=== PATIENT | female | born 1970 | race Caucasian/White ===

== ENCOUNTER 2022-04-02 10:14 | Inpatient (IN) | payer BC ==
[~2022-04-02] VITALS: Ht 162.6 cm; Wt 63.0 kg
[2022-04-02 10:20] VITALS: BP_SYST 94
--- NOTE | 2022-04-02 10:25 | NUR ---
Placed in room 7 . Placed on neighborhood coordinator, blood pressure machine and pulse oximeter. To gown for exam. Side rails up.
--- NOTE | 2022-04-02 10:26 | NUR ---
ER at bedside examining patient.
--- NOTE | 2022-04-02 10:27 | NUR ---
PT CAME IN FROM HOME, PT REPORTS SHE HAD CHEMO 1.5 WEEKS AGO FOR FIRST TIME, HAS DEVELOPED SORES ON FACE, MOUTH, TONGUE AND THROAT. UNABLE TO TOLERATE PO X 3 DAYS DUE TO PAIN RECENT DX OF BREAST AND LIVER CA. PT IS UNABLE TO TALK DUE TO PAIN. PT IS AMBULATORY, AAOX4, VSS
[2022-04-02] MEDS ORDERED: NACL 0.9% 1,000 ML IV ONE (10:45)
--- NOTE | 2022-04-02 10:56 | NUR ---
LAB AT THE BEDSIDE FOR BLOOD DRAW
[2022-04-02] MEDS ORDERED: MORPHINE 2 MG/ML INJ. SYRINGE IVP ONE (11:45)
[2022-04-02 11:49] LABS: HEMOGLOBIN 12.8 g/dL (12.0-16.0); MEAN CORPUSCULAR HEMOGLOBIN 28 pg (27-31); MEAN CORPUSCULAR HGB CONC 34 % (32-36); MEAN CORPUSCULAR VOLUME 84 fL (79.0-98.0); PLATELET COUNT (AUTO) 82 K/uL (130-430); RED BLOOD CELL COUNT(AUTO) 4.54 MIL/uL (4.2-6.2); RED CELL DISTRIBUTION WIDTH 16.1 % (9.0-15.0)
[2022-04-02 11:55] LABS: INR 1.2 (0.8-1.2)
[2022-04-02 12:00] LABS: WHITE BLOOD COUNT (AUTO) 26.1 K/uL (4.8-10.8)
[2022-04-02 12:08] LABS: ANION GAP 13 (5-15); ASPARTATE AMINOTRANSFERASE 73 U/L (10-37); CALCIUM 7.8 mg/dL (8.4-11.0); CHLORIDE 100 mmol/L (98-107); CREATININE 1.66 mg/dL (0.55-1.30); GFR AFRICAN AMERICAN 42 mL/min (>90); GLUCOSE 101 mg/dL (70-99); TOTAL BILIRUBIN 1.7 mg/dL (0.0-1.0); UREA NITROGEN, BLOOD 51 mg/dL (8-21)
[2022-04-02 12:09] LABS: ALANINE AMINOTRANSFERASE 53 U/L (12-78)
[2022-04-02 12:22] LABS: ACETONE, SERUM NEGATIVE (NEGATIVE)
[2022-04-02] MEDS ORDERED: cefTRIAXone 1 GM IVPB PREMIX 50 ML IV ONE (13:00)
[2022-04-02 13:12] LABS: ATYPICAL LYMPHOCYTES % 0 % (0-0); BAND % (MANUAL) 17 % (0-6); BASOPHILS % (MANUAL) 0 % (0-2); EOSINOPHILS % (MANUAL) 0 % (0-7); LYMPHOCYTES % (MANUAL) 14 % (20-46); METAMYELOCYTES % 2 % (0-0); MONOCYTES % (MANUAL) 9 % (0-11); MYELOCYTES % 2 % (0-0)
[2022-04-02] MEDS: D5/0.45 NS 1,000 ML IV SCH ×2 (13:55→23:09)
--- NOTE | 2022-04-02 14:43 | NUR ---
Admit bed requested Patient will be admitted to care of . Admitted to Telemetry unit. Diagnosis Sepsis,Renal Failure Inpatient (Yes or No) yes Observation (Yes or No) no Orientation concerns or request close to nursing station (Yes or No) no Covid Status pending On vent or bipap no Isolation requirements no Needs a sitter no From Home (Yes or if No enter name of facility) yes Requires Dialysis (Yes or No) no Med Rec Completed (Yes of No) pending
[2022-04-02] MEDS ORDERED: NALOXONE HCL 0.4 MG/ML AMP (NARCAN) IVP PRN ×3 (15:00→16:45)
[2022-04-02] MEDS ORDERED: HYDROcodone/ACETAMIN 5-325 MG TAB (NORCO/ VICODIN) PO PRN (15:00)
[2022-04-02] MEDS ORDERED: LORazepam 2 MG/ML VIAL IVP PRN (15:00)
[2022-04-02] MEDS ORDERED: ACETAMINOPHEN 325 MG TABLET PO PRN ×2 (15:00→15:30)
[2022-04-02] MEDS ORDERED: HYDROcodone/ACETAMIN 10-325 MG TAB PO PRN (15:00)
--- NOTE | 2022-04-02 16:26 | NUR ---
Patient will be admitted to care of DR. CHAPMAN. Admitted to MST unit. Will go to room 100A. Belongings list completed. Complete and up to date summary report printed. SBAR given at bedside TO JEWELS BLAKE with opportunity for questions.
--- NOTE | 2022-04-02 16:38 | NUR ---
CONSULTATION: REASON FOR CONSULT: SEPSIS CONSULTING PHYSICIAN: Surya CRAVEN ORDERED BY: Keisha CHAPMAN SPOKE WITH [facility] [phone]
--- NOTE | 2022-04-02 16:42 | NUR ---
CONSULTATION: REASON FOR CONSULT: RENAL FAILURE CONSULTING PHYSICIAN: Keisha SHABAZZ ORDERED BY: Keisha CHAPMAN SPOKE WITH [facility] [phone] DR MARINA IS ONCALL FOR DR SHABAZZ
[2022-04-02] MEDS ORDERED: ONDANSETRON HCL 4 MG/2 ML VIAL IVP PRN (16:45)
[2022-04-02] MEDS ORDERED: MORPHINE 2 MG/ML INJ. SYRINGE IVP PRN (16:45)
--- NOTE | 2022-04-02 16:45 | NUR ---
Patient arrived to hospital unit room 100A via gurney. Patient is alert and oriented x4. Respiration even and unlabored. No shortness of breath and respiration even and unlabored. Patient c/o mouth and throat soreness and stated she was unable to swallow. Patient's mom and at bedside. 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 Patient's asked if the rocephin will help clear up the soreness of mouth and throat. Explained that the DrAshlyn may have more information regarding his question. DAVE Carvalho made aware that patient had arrived. Dr. Honeycutt contacted for further orders. Will continue to monitor. Call light within reach.
--- NOTE | 2022-04-02 16:47 | NUR ---
CONSULTATION: REASON FOR CONSULT: HX MESTASTIC CANCER CONSULTING PHYSICIAN: LÓPEZ ORDERED BY: ADELA SPOKE WITH [facility] [phone]
[2022-04-02] MEDS: NYSTATIN 500,000 UNITS/5 ML UDC PO SCH ×2 (16:50→23:08)
[2022-04-02] MEDS: ONDANSETRON HCL 4 MG/2 ML VIAL IVP PRN ×2 (16:51→23:08)
[2022-04-02 17:14] VITALS: BP_SYST 143
[2022-04-02 17:41] LABS: BILIRUBIN,URINE NEGATIVE (NEGATIVE); BLOOD, URINE 2+ (NEGATIVE); COLOR,URINE YELLOW (YELLOW); GLUCOSE,URINE NEGATIVE (NEGATIVE); KETONES,URINE NEGATIVE (NEGATIVE); LEUKOCYTE ESTERASE ,URINE 1+ (NEGATIVE); NITRITE, URINE NEGATIVE (NEGATIVE); PH,URINE 5.5 (5.0-8.0); PROTEIN URINE TRACE (NEGATIVE); UROBILINOGEN,URINE 0.2 (0.2-1.0)
[2022-04-02 17:53] LABS: CLARITY/URINE HAZY (CLEAR)
[2022-04-02 17:55] LABS: BACTERIA,URINE FEW /HPF (None Seen); OTHER CASTS, URINE CELLULAR CAST /LPF (None Seen); RBC,URINE NONE SEEN /HPF (0-3)
[2022-04-02 17:56] LABS: MUCUS,URINE None Seen /LPF (None Seen)
--- NOTE | 2022-04-02 18:31 | NUR ---
Spoke with Dr. Honeycutt regarding orders. New orders noted and carriedo ut.
[2022-04-02 18:33] VITALS: BP_SYST 134
--- NOTE | 2022-04-02 18:41 | NUR ---
Report given to cage shift manager RN for continuity of care. Patient stable.
--- NOTE | 2022-04-02 19:20 | NUR ---
Opening note Received patient awake, AOx4. Resting in bed, no distress and non labored breathing on room air. She has a dry weak cough. IVF is infusing via portacath on Rt chest. She reports generalized weakness, pain/discomfort. Bed is locked in lowest position, side rails up, call light w/in reach and updated board.
[2022-04-02 20:00] VITALS: BP_SYST 113
[2022-04-02] MEDS: MORPHINE 4 MG INJ. 4 MG/ML VIAL IVP PRN (23:07)
--- NOTE | 2022-04-02 23:07 | NUR ---
c/o severe pain; Morphine Patient reports severe pain 12/12; generalized (to bones, arms, legs, mouth, all her body. Administered Morphine 4mg for severe pain as ordered. Unable to swallow tablets since she also has oral pain when swallows. Addendum: 04/02/22 at 2357 by Kaylen Lee RN Reviewed Morphine side effects and she verbalized understanding., Bed alarm turned on.
--- NOTE | 2022-04-02 23:09 | NUR ---
IVF, Nystatin Hung new bag of IVF, infusing well. Scheduled med, Nystatin given. She reports it is painful when swish and swallows; she requested a cup of ice water; and it was provided.
[2022-04-03 00:31] VITALS: BP_SYST 107
--- NOTE | 2022-04-03 02:30 | NUR ---
Rounds / Bed franz Patient reports leg weakness and would rather use bed franz; instead of trying to stand for BSC. She voided and was assisted with reposition/turn for comfort. Call light, bedside tray and water is w/in reach. She has no further needs.
--- NOTE | 2022-04-03 06:40 | NUR ---
Bed franz Provided bed franz (voided) and assist with reposition for comfort.
[2022-04-03] MEDS: ONDANSETRON HCL 4 MG/2 ML VIAL IVP PRN ×2 (06:59→22:23)
[2022-04-03] MEDS: NYSTATIN 500,000 UNITS/5 ML UDC PO SCH ×3 (06:59→18:12)
[2022-04-03] MEDS: MORPHINE 4 MG INJ. 4 MG/ML VIAL IVP PRN ×2 (07:00→22:23)
--- NOTE | 2022-04-03 07:05 | NUR ---
closing note Patient resting in bed in comfortable position. Morphine administered for severe pain and also Zofran was given ( B/P was 124/78, HR 118). She is drinking ice cold water and Nystatin given. Presently stable, will endorse care.
--- NOTE | 2022-04-03 07:35 | NUR ---
RECEIVED PT FROM JEWELS RASCON. PT IS AAOX4. TELEMONITOR READING SINUS TACH HR IN 110S. RESP E/U. ON R/A. NO COUGH OR SOB NOTED. ABDOMEN SOFT, NONTENDER, NONDISTENDED. BOWEL SOUNDS ACTIVE, POOR APPETITE NOTED. PT HAS ORAL LESIONS AND DIFFUSE RED RASH TO SKIN. DISTAL PULSES NORMAL, NO PERIPHERAL EDEMA. SKIN WARM, DRY, CAP REFILL < 3 SECS. PT HAS RIGHT UPPER CHEST PORTACATH, PATENT WITH D5 1/2 NS RUNNING. SITE WNL, DRESSING CDI. CALL LIGHT WITHIN REACH. BED IN LOWEST POSITION.
[2022-04-03] MEDS: D5/0.45 NS 1,000 ML IV SCH ×2 (07:49→18:13)
[2022-04-03 08:26] VITALS: BP_SYST 125
--- NOTE | 2022-04-03 08:45 | NUR ---
SCHEDULED MEDS GIVEN ORDERED. PT GIVEN ICE CHIPS TO RELIEVE SORE MOUTH. REPOSITIONED FOR COMFORT. STATES GENERALIZED PAIN 2/10 AND TOLERABLE AT THIS TIME. SIDERAILS UP, CALL LIGHT WITHIN REACH.
--- NOTE | 2022-04-03 10:45 | NUR ---
DR. CHAPMAN AT BEDSIDE TO DISCUSS POC.
[2022-04-03] MEDS ORDERED: LORazepam 2 MG/ML VIAL IVP PRN (11:00)
--- NOTE | 2022-04-03 11:18 | NUR ---
CONSULT GI TRANSAMINITIS DR CHONG [facility] [phone] S/W BRITTA SANCHEZ
--- NOTE | 2022-04-03 11:46 | NUR ---
SPOKE TO DR. CRAVEN BY PHONE, RECEIVED ORDER FOR ROCEPHIN ONE GRAM IV Q DAILY. ORDER CARRIED OUT.
[2022-04-03 12:20] VITALS: BP_SYST 118
[2022-04-03] MEDS ORDERED: cefTRIAXone 1 GM in D5W 50 ML IV SCH (13:00)
[2022-04-03] MEDS ORDERED: cefTRIAXone 1 GM IVPB PREMIX 50 ML IV SCH (13:00)
--- NOTE | 2022-04-03 13:10 | NUR ---
PT ASSISTED TO BEDSIDE COMMODE TO URINATE, THEN ASSISTED BACK TO BED. PT TOLERATED ACTIVITY WELL AND SHOWS INCRESING STRENGTH. SCHEDULED MEDS GIVEN AND TOLERATED WELL.
[2022-04-03 14:32] LABS: HEMATOCRIT 32.1 % (36-48); HEMOGLOBIN 10.9 g/dL (12.0-16.0); MEAN CORPUSCULAR HEMOGLOBIN 28 pg (27-31); MEAN CORPUSCULAR HGB CONC 34 % (32-36); MEAN CORPUSCULAR VOLUME 84 fL (79.0-98.0); RED BLOOD CELL COUNT(AUTO) 3.84 MIL/uL (4.2-6.2); RED CELL DISTRIBUTION WIDTH 16.5 % (9.0-15.0)
[2022-04-03 14:42] LABS: WHITE BLOOD COUNT (AUTO) 26.4 K/uL (4.8-10.8)
[2022-04-03 15:02] LABS: PLATELET COUNT (AUTO) 66 K/uL (130-430)
[2022-04-03 15:03] LABS: BAND % (MANUAL) 10 % (0-6); BASOPHILS % (MANUAL) 0 % (0-2); EOSINOPHILS % (MANUAL) 0 % (0-7); LYMPHOCYTES % (MANUAL) 9 % (20-46); MONOCYTES % (MANUAL) 2 % (0-11); MYELOCYTES % 1 % (0-0)
[2022-04-03 15:09] LABS: CREATININE 1.07 mg/dL (0.55-1.30)
[2022-04-03 15:10] LABS: CALCIUM 7.3 mg/dL (8.4-11.0)
--- NOTE | 2022-04-03 16:00 | NUR ---
PT ASSISTED TO BEDSIDE COMMODE TO URINATE, THEN BACK TO BED. PT REFUSED LUNCH STATING POOR APPETITE. PT DENIES PAIN. CALL WITHIN REACH.
[2022-04-03 16:25] VITALS: BP_SYST 129
--- NOTE | 2022-04-03 18:14 | NUR ---
SCHEDULED MED GIVEN AND TOLERATED WELL. PT DENIES PAIN. CALL LIGHT WITHIN REACH.
--- NOTE | 2022-04-03 19:18 | NUR ---
Opening note Received patient resting in bed, eyes closed, eyes to arouse. AOx4, no distress and non labored breathing on room air, VSS. IVF infusing via hilda-cath on right chest. She requested a new pitcher of ice water and it was provided. She wanted to keep the lights out and have the door closed. She reports generalized weakness, pain/discomfort. Bed is locked in lowest position, side rails up, call light w/in reach and updated board.
[2022-04-03 20:00] VITALS: BP_SYST 113
--- NOTE | 2022-04-03 22:08 | NUR ---
Bed franz, ice water Patient requested ice water and it was provided. She was assisted with bed franz, voided and was assisted with assisted with position for comfort.
--- NOTE | 2022-04-03 22:23 | NUR ---
Morphine, c/o pain Patient reporting severe pain and administered Morphine as ordered.
[2022-04-03 22:46] VITALS: BP_SYST 125
--- NOTE | 2022-04-03 22:47 | NUR ---
Pt was in the hallway and requested to speak to the person caring for his in room 100A. Offered to assist and he stated he would like to speak to the nurse in regards to the pt status and treatment response. Informed nurse Cedillo. Pt informed as well. After report. I offered to check pt and ask if she need anything directly. Pt look flushed, fatigued and face was slightly red. Check pt temp via dorsal and decided to take her vital due to her feel warm. pt temp was 100 F. Nurse Cedillo informed and will take provided the approve medication to reduce fever.
--- NOTE | 2022-04-03 22:50 | NUR ---
Dr. Keisha Honeycutt, (Tylenol, Gabapentin) S/W and informed Dr. Honeycutt that patient has temp of 100.0 and she did not want PO Tylenol d/t pain upon swallowing. Patient was informed can call MD and order suppository or liquid Tylenol and she said no. Patient and her are requesting Tylenol IV. Patient also informed that she has prescription at home for Gabapentin and it was given for leg pain as needed. Dr. Honeycutt wanted to clarify (does not make sense); Patient does not want PO Tylenol and is requesting Gabapentin; how will she take it? S/W patient and she said at home releases med from capsule and takes with Gelatin and willing to try. Informed Dr. Honeycutt, patient said she will take PO Gabapentin. Received orders for Gabapentin 300mg TID and keep Tylenol PO as ordered (no new order for Tylenol). TORB.
--- NOTE | 2022-04-03 22:55 | NUR ---
Refused Tylenol (PO) Patient refused Tylenol PO and agreed to cooling measures. She will try Gabapentin, but will wait one -two hours (she got Morphine for pain). remains visiting at bedside.
[2022-04-04] VITALS (7 sets, daily range): BP systolic 111–130
[2022-04-04] MEDS: NYSTATIN 500,000 UNITS/5 ML UDC PO SCH ×4 (00:18→18:02)
[2022-04-04] MEDS: GABAPENTIN 300 MG CAPSULE PO SCH ×4 (00:18→21:28)
--- NOTE | 2022-04-04 00:18 | NUR ---
Meds Scheduled meds, Gabapentin given and Nystatin. First she took Gabapentin, capsule and powder was mixed with a spoon of gelatin. She swallowed and followed it with ice water. Second she took Nystatin and was instructed to swish, hold and wait at least 5 minutes before she swallows. She verbalized understanding. She has no further needs.
--- NOTE | 2022-04-04 03:45 | NUR ---
Dr. Chris rounds Dr. Chris at bedside to see patient. New orders noted, will carry out. Addendum: 04/04/22 at 0428 by Kaylen Lee RN Patient reports she wants to know what doctor said. I informed her he ordered new antibiotics and radiology imaging studies (CT). She said, she does not want CT test, refused. She adds that she already had imaging tests done at [facility]. Addendum: 04/04/22 at 0751 by Kaylen Lee RN S/W Dr. Chris and informed patient refused CT studies and he said tell her it is not to see cancer. Study is ordered to view what changes are presently taking place, get understanding of her present condition. Informed patient and she agreed to CT test
[2022-04-04] MEDS: D5/0.45 NS 1,000 ML IV SCH ×3 (04:10→21:28)
[2022-04-04] MEDS ORDERED: FLUCONAZOLE 200 mg/ NS 100 ML IV ONE (05:15)
--- NOTE | 2022-04-04 05:50 | NUR ---
Antibiotic, partial bed bath Patient administered new antibiotic, reviewed side effects and she verbalized understanding. Provided bed franz, she voided. Gave CHG bath and provide new gown and sheets. Presently reports pain is tolerable and does not want pain med (Morphine).
[2022-04-04] MEDS: FLUCONAZOLE 200 mg/ NS 100 ML IV SCH (05:54)
--- NOTE | 2022-04-04 07:35 | NUR ---
Blood draw Blood drawn from hilda-cath, explained procedure to patient and she agreed. Blood given to Courtney altamirano and she took samples to lab.
--- NOTE | 2022-04-04 08:00 | NUR ---
Initial notes Awake, feels weak. denies any shortness of breath. IVF infusing well. Pain is control at this time. Call light within reach. Enc. to call for help as needed.
[2022-04-04 08:20] LABS: BASOPHILS # (AUTO) 0.1 K/uL (0.0-0.2); BASOPHILS % (AUTO) 0.4 % (0.0-2.0); EOSINOPHILS % (AUTO) 0.1 % (0.0-4.0); HEMATOCRIT 31.1 % (36-48); HEMOGLOBIN 10.4 g/dL (12.0-16.0); LYMPHOCYTES % (AUTO) 4.7 % (20.5-51.5); MEAN CORPUSCULAR HEMOGLOBIN 28 pg (27-31); MEAN CORPUSCULAR HGB CONC 33 % (32-36); MEAN CORPUSCULAR VOLUME 84 fL (79.0-98.0); MONOCYTES # (AUTO) 0.2 K/uL (0.0-1.0); MONOCYTES % (AUTO) 0.7 % (1.7-9.3); NEUTROPHILS # (AUTO) 20.1 K/uL (1.8-7.7); PLATELET COUNT (AUTO) 54 K/uL (130-430); RED BLOOD CELL COUNT(AUTO) 3.71 MIL/uL (4.2-6.2); RED CELL DISTRIBUTION WIDTH 16.5 % (9.0-15.0); WHITE BLOOD COUNT (AUTO) 21.4 K/uL (4.8-10.8)
[2022-04-04 09:03] LABS: NEUTROPHILS % (AUTO) 94.1 % (40.0-70.0)
[2022-04-04 09:10] LABS: ALBUMIN 1.5 g/dL (3.4-4.8); CALCIUM 7.3 mg/dL (8.4-11.0); CREATININE 0.73 mg/dL (0.55-1.30); PHOSPHORUS 1.8 mg/dL (2.7-4.5); TOTAL BILIRUBIN 1.2 mg/dL (0.0-1.0)
[2022-04-04] MEDS: CEFEPIME 2 GM in D5W 100 ML IV SCH ×2 (09:12→21:26)
[2022-04-04 10:19] LABS: ERYTHROCYTE SEDIMENTATION RATE 58 MM/HR (0-20)
[2022-04-04 10:57] LABS: C-REACTIVE PROTEIN QUANT 16.4 mg/dL (0-0.5)
--- NOTE | 2022-04-04 11:00 | NUR ---
Notes resting in bed, family at bedside. Encourage to call for help as needed.
[2022-04-04] MEDS ORDERED: LIDOCAINE VISCOUS 2%, 15 ML UDC MM PRN (13:15)
--- NOTE | 2022-04-04 14:16 | NUR ---
CONSULTATION PAGED/CALLED Reason for Consultation: []cancer Person Who was Notified: []Nancy Consulting Physician: [] Antelmo Carrington Magician Helper Specialty: []Oncology Ordering Physician: []Dr. Ortiz
--- NOTE | 2022-04-04 17:31 | NUR ---
ST EVALUATION COMPLETED. ST TX NOT INDICATED AT THIS TIME. RECOMMEND PO DIET OF PUREE AND THIN LIQUIDS. DISTANT SUPERVISION AND FULL ASPIRATION PRECAUTIONS.
--- NOTE | 2022-04-04 17:55 | NUR ---
Dietitian Recommendations * If/when medically appropriate, consider puree or MSoft textures * Ensure Enlive TID (ONS provides 1050 kcals, 60g protein) * Recommend daily MVI * Recommend zero bedscale and update patient weight as soon as feasible Please refer to nutrition assessment for details, thanks! CC, MPH, RDN
--- NOTE | 2022-04-04 20:00 | NUR ---
Received patient resting in bed, eyes closed, eyes to arouse. AOx4, no distress and non labored breathing on room air, VSS. IVF infusing via hilda-cath on right chest. She requested a new pitcher of ice water and it was provided. She wanted to keep the lights out and have the door closed. She reports generalized weakness, pain/discomfort. pt requests for bedpan when needs to urinate. Bed is locked in lowest position, side rails up, call light w/in reach and updated board.
[2022-04-04] MEDS: POLYETHYLENE GLYCOL 3350, 17 GM/ POWD.PACK PO SCH (21:27)
[2022-04-04] MEDS: ACYCLOVIR 400 MG TABLET PO SCH (21:27)
[2022-04-05] VITALS: BP_SYST 118
[2022-04-05] MEDS: NYSTATIN 500,000 UNITS/5 ML UDC PO SCH ×4 (00:22→17:58)
[2022-04-05] MEDS: FLUCONAZOLE 200 mg/ NS 100 ML IV SCH (04:58)
[2022-04-05] MEDS: D5/0.45 NS 1,000 ML IV SCH ×2 (04:58→13:10)
[2022-04-05 07:43] LABS: TOTAL IRON BIND. CAPACITY 138 ug/dL (250-450)
[2022-04-05 07:55] LABS: BASOPHILS # (AUTO) 0.1 K/uL (0.0-0.2); BASOPHILS % (AUTO) 0.7 % (0.0-2.0); EOSINOPHILS % (AUTO) 0.1 % (0.0-4.0); HEMOGLOBIN 10.8 g/dL (12.0-16.0); LYMPHOCYTES # (AUTO) 1.3 K/uL (1.0-5.5); LYMPHOCYTES % (AUTO) 7.2 % (20.5-51.5); MEAN CORPUSCULAR HEMOGLOBIN 28 pg (27-31); MEAN CORPUSCULAR HGB CONC 34 % (32-36); MEAN CORPUSCULAR VOLUME 84 fL (79.0-98.0); MONOCYTES # (AUTO) 0.8 K/uL (0.0-1.0); MONOCYTES % (AUTO) 4.1 % (1.7-9.3); NEUTROPHILS # (AUTO) 16.3 K/uL (1.8-7.7); PLATELET COUNT (AUTO) 50 K/uL (130-430); RED BLOOD CELL COUNT(AUTO) 3.83 MIL/uL (4.2-6.2); RED CELL DISTRIBUTION WIDTH 16.5 % (9.0-15.0); WHITE BLOOD COUNT (AUTO) 18.5 K/uL (4.8-10.8)
[2022-04-05 08:00] VITALS: BP_SYST 131
[2022-04-05] MEDS: CEFEPIME 2 GM in D5W 100 ML IV SCH ×2 (08:45→20:24)
[2022-04-05] MEDS: POLYETHYLENE GLYCOL 3350, 17 GM/ POWD.PACK PO SCH ×2 (08:50→20:24)
[2022-04-05] MEDS: GABAPENTIN 300 MG CAPSULE PO SCH ×3 (08:50→20:23)
[2022-04-05] MEDS: ACYCLOVIR 400 MG TABLET PO SCH ×2 (08:50→20:23)
--- NOTE | 2022-04-05 10:35 | NUR ---
Patient bleeding small amount of red blood from left nares by picking scab from inside. Applied pressure bleeding stop, will notify M.D and continue to monitor
[2022-04-05 11:25] VITALS: BP_SYST 108
[2022-04-05 11:29] LABS: NEUTROPHILS % (AUTO) 87.9 % (40.0-70.0)
[2022-04-05 15:21] VITALS: BP_SYST 125
--- NOTE | 2022-04-05 18:46 | NUR ---
Closing notes Patient stable, sign of distress, IV hilda-cath intact, safety measures secure, will endorse to oncoming nurse
--- NOTE | 2022-04-05 20:00 | NUR ---
OPENING NOTE PT IS AAOX4. TELEMONITOR READING SINUS TACH HR IN 110S. PT ON R/A. NO COUGH OR SOB NOTED. PT HAS ORAL LESIONS AND RED RASH TO FACE AND NECK. PT HAS RIGHT UPPER CHEST PORTACATH, PATENT WITH D5 1/2 NS RUNNING. CALL LIGHT WITHIN REACH. BED IN LOWEST POSITION. ALL SAFETY MEASURE IN PLACE WILL CONTINUE TO MONITOR.
--- NOTE | 2022-04-05 21:30 | NUR ---
PT C/O PAIN AT PAIN PT C/O PAIN AT 7/10 BUT DID NOT WANT MORPHINE. PT REPORTS THE NEURONTIN WILL HELP, PT GIVNE THE MEDICATION
--- NOTE | 2022-04-05 22:30 | NUR ---
BM PT HAS LOOSE BM IN THE BSC.
[2022-04-06] MEDS: D5/0.45 NS 1,000 ML IV SCH ×3 (01:00→12:56)
--- NOTE | 2022-04-06 01:30 | NUR ---
BM PT HAS ANOTHER LOOSE BM INT HE BSC.
[2022-04-06] MEDS: FLUCONAZOLE 200 mg/ NS 100 ML IV SCH (04:00)
--- NOTE | 2022-04-06 05:30 | NUR ---
PAIN IN HANDS PT REQUESTED ICE PACK FOR THE PIN IN THE HANDS PT REPORTS ITS FROM THE CHEMO SHE RECEIVED ON 03/24/22. ICE PACKS GIVEN
--- NOTE | 2022-04-06 06:15 | NUR ---
BM PT HAD 3RD BM FOR THE SHIFT. PT EDUCATED AND ADVISE TO NOT TAKE THE MIRAX INT HE MA AND WHEN SHE SEE'S HER DOCTOR TO REQUEST THE MIRALAX IS D/C'D
[2022-04-06] MEDS: NYSTATIN 500,000 UNITS/5 ML UDC PO SCH ×4 (06:51→18:20)
[2022-04-06 07:40] VITALS: BP_SYST 125
--- NOTE | 2022-04-06 07:40 | NUR ---
OPENING NOTE Patient in bed resting. A/O X 4 Azeri speaking. No pain, No SOB, No distress noted. IV to Right chest port patent and on SL. Bedside commode within reach and reminded patient to call for assistance. All needs met at this time, Bed locked in lowest position. Call light within reach. Will continue to monitor.
[2022-04-06 08:04] LABS: CALCIUM 7.5 mg/dL (8.4-11.0); CREATININE 0.58 mg/dL (0.55-1.30)
[2022-04-06 08:06] LABS: FOLATE (FOLIC ACID) 4.3 ng/mL (>3.0)
[2022-04-06 08:20] LABS: BASOPHILS # (AUTO) 0.1 K/uL (0.0-0.2); BASOPHILS % (AUTO) 0.7 % (0.0-2.0); HEMATOCRIT 31.4 % (36-48); HEMOGLOBIN 10.7 g/dL (12.0-16.0); LYMPHOCYTES # (AUTO) 1.6 K/uL (1.0-5.5); MEAN CORPUSCULAR HEMOGLOBIN 28 pg (27-31); MEAN CORPUSCULAR HGB CONC 34 % (32-36); MEAN CORPUSCULAR VOLUME 84 fL (79.0-98.0); MONOCYTES # (AUTO) 0.7 K/uL (0.0-1.0); MONOCYTES % (AUTO) 4.6 % (1.7-9.3); NEUTROPHILS # (AUTO) 13.3 K/uL (1.8-7.7); NEUTROPHILS % (AUTO) 84.7 % (40.0-70.0); PLATELET COUNT (AUTO) 56 K/uL (130-430); RED BLOOD CELL COUNT(AUTO) 3.75 MIL/uL (4.2-6.2); RED CELL DISTRIBUTION WIDTH 16.4 % (9.0-15.0); WHITE BLOOD COUNT (AUTO) 15.8 K/uL (4.8-10.8)
[2022-04-06] MEDS: ACYCLOVIR 400 MG TABLET PO SCH (08:43)
[2022-04-06] MEDS: GABAPENTIN 300 MG CAPSULE PO SCH ×2 (08:43→14:52)
[2022-04-06] MEDS: POLYETHYLENE GLYCOL 3350, 17 GM/ POWD.PACK PO SCH (08:44)
[2022-04-06 11:04] LABS: FERRITIN 3529 ng/mL (15-150)
[2022-04-06] MEDS: CEFEPIME 2 GM in D5W 100 ML IV SCH (11:11)
[2022-04-06 12:00] VITALS: BP_SYST 116
--- NOTE | 2022-04-06 12:05 | NUR ---
PATIENT ROUNDS Patient in bed resting. No pain, No SOB, No distress noted. Breathing even and unlabored. All needs met at this time, Bed locked in lowest position. Call light within reach. Will continue to monitor.
--- NOTE | 2022-04-06 15:59 | NUR ---
MD CALL Left voicemail to MD Castaneda regarding patient discharge and how patient and family do not feel that patient is well enough to be sent home. Awaiting a call back from MD Castaneda.
[2022-04-06 16:05] VITALS: BP_SYST 122
[2022-04-06 16:37] VITALS: BP_SYST 122
[2022-04-06] MEDS ORDERED: POLY17PO4 PO (17:11)
[2022-04-06] MEDS ORDERED: ACYC400T19 PO (17:11)
[2022-04-06] MEDS ORDERED: NYSTATIN SWISH PO (17:11)
[2022-04-06] MEDS ORDERED: LIDOCAINE BC (17:12)
[2022-04-06 18:01] LABS: HEMATOCRIT 33.8 % (36-48); HEMOGLOBIN 11.5 g/dL (12.0-16.0); MEAN CORPUSCULAR HEMOGLOBIN 28 pg (27-31); MEAN CORPUSCULAR HGB CONC 34 % (32-36); MEAN CORPUSCULAR VOLUME 83 fL (79.0-98.0); PLATELET COUNT (AUTO) 61 K/uL (130-430); RED BLOOD CELL COUNT(AUTO) 4.07 MIL/uL (4.2-6.2); RED CELL DISTRIBUTION WIDTH 16.7 % (9.0-15.0); WHITE BLOOD COUNT (AUTO) 16.2 K/uL (4.8-10.8)
[2022-04-06 18:31] LABS: BAND % (MANUAL) 8 % (0-6); LYMPHOCYTES % (MANUAL) 12 % (20-46); MONOCYTES % (MANUAL) 2 % (0-11)
--- NOTE | 2022-04-06 19:23 | NUR ---
D/C Patient Patient given medication reconciliation form and D/C instructions. Exit Care provided. Patient verbalized understanding. MD discussed with patient the results and treatment provided. Ambulatory with steady gait for discharge to home. Patient in stable condition, ID band removed. IV catheter removed, intact and dressing applied, no active bleeding. Rx of given. Patient educated on pain management. All belongings sent with patient.
== END 2022-04-06 19:10 | disposition home health service (06) | DRG 871 ==
LOC: SED 10:14 → STU 13:18
PROVIDERS: ADMIT Internal Medicine; ATTEND Internal Medicine
DX: A41.9 Sepsis, unspecified organism (principal); E43 Unspecified severe protein-calorie malnutrition; N17.0 Acute kidney failure with tubular necrosis; C78.7 Secondary malignant neoplasm of liver and intrahepatic bile duct; B37.0 Candidal stomatitis; E87.1 Hypo-osmolality and hyponatremia; N39.0 Urinary tract infection, site not specified; E83.52 Hypercalcemia; D69.6 Thrombocytopenia, unspecified; R73.9 Hyperglycemia, unspecified; Z20.822 Contact with and (suspected) exposure to COVID-19; E88.09 Other disorders of plasma-protein metabolism, not elsewhere classified; L27.0 Generalized skin eruption due to drugs and medicaments taken internally; T45.1X5A Adverse effect of antineoplastic and immunosuppressive drugs, initial encounter; I10 Essential (primary) hypertension; E86.0 Dehydration; C50.919 Malignant neoplasm of unspecified site of unspecified female breast; K12.30 Oral mucositis (ulcerative), unspecified; Z85.3 Personal history of malignant neoplasm of breast; Z68.23 Body mass index [BMI] 23.0-23.9, adult; Y92.89 Other specified places as the place of occurrence of the external cause
CPT/HCPCS: 36415; 71045; 71250-TC; 76376; 80048; 80053; 81000; 82009; 82550; 82607; 82728; 82746; 83540; 83550; 83605; 83735; 84100; 84484; 85007; 85025; 85027; 85610-TC; 85651-TC; 85730-TC; 86140; 87040; 87086; 92610-GN; 93005; 96361; 96365; 96375; 99285; G0378; J0692; J0696; J1450; J2001; J2270; J2405; J7030; J7060